=== PATIENT | female | born 1945 | race Caucasian/White ===

== ENCOUNTER 2019-05-09 11:55 | Day surgery (SDC) | payer MEDICARE ==
[2019-05-09] MEDS ORDERED: Marcaine 0.5% SDV 10 ML IM ONE (11:56)
[2019-05-09] MEDS ORDERED: Xylocaine 1% Vial 30 ML PF IJ ONE (11:56)
[2019-05-09] MEDS ORDERED: Depo-Medrol 40 MG/ML IM ONE (11:56)
--- NOTE | 2019-05-09 15:11 | XRAY ---
Indication: Bilateral SI joint injection. Intraoperative fluoroscopy was provided for 21 seconds. 4 digital spot images submitted for interpretation demonstrates posterior needle tip projecting over the inferior left and right SI joint. Correlate with intraoperative findings/report.
--- NOTE | 2019-05-09 15:11 | XRAY ---
21 seconds fluoroscopy time in surgery for bilateral SI joint injections.
== END 2019-05-09 14:14 | disposition home or self-care (01) ==
LOC: SDC-PAIN 11:55
PROVIDERS: ATTEND Psychiatry & Neurology Pain Medicine
DX: M46.1 Sacroiliitis, not elsewhere classified (principal); M53.3 Sacrococcygeal disorders, not elsewhere classified; E11.9 Type 2 diabetes mellitus without complications; I10 Essential (primary) hypertension; Z79.899 Other long term (current) drug therapy
CPT/HCPCS: 72202; 77002; G0260; 27096; J1030; J2001

== ENCOUNTER 2020-02-06 16:56 | Inpatient (IN) | payer MEDICARE ==
--- NOTE | 2020-02-06 17:00 | ERPHSYRPT ---
- History of Present Illness Time Seen by Provider: 02/06/20 17:00 Source: patient, EMS Exam Limitations: no limitations Physician History: This is a 74-year-old obese white female has a history of hypertension and diabetes as well as gout. Patient's primary care doctor is Dr. Sharp he has been seeing her in clinic for various pain issues. Patient has a history in the past of having a pain management doctor but told me specifically that the pain management doctor fired her from his clinic because she was not being compliant with the dosing schedule of her pain medicine. Approximately 2 to 4 weeks ago patient had some falling issues and some pain but did not have any x-rays to those areas specifically. Patient had complaints of lower back pain and bilateral hip pain. She then had another fall approximately 1 week ago and had pain in her left lower leg and left foot. There is bruising and swelling in the left foot as well. Patient states that until approximately 2 weeks ago patient was ambulatory. Patient is here today for intractable back and hip pain as well as inability to ambulate because of the pain. On 02/05/2020 a left tib-fib x- ray was performed and there was no evidence of any acute fracture or dislocation. On the same date, there was an x-ray of the left foot which does show a minimally displaced fracture at the base of the second proximal phalanx. Timing/Duration: week(s) (2 to 4 weeks ago) Severity: moderate Modifying Factors: Improves With: movement Associated Symptoms: denies symptoms Allergies/Adverse Reactions: levofloxacin [From Levaquin] Allergy (Mild, Verified 02/06/20 17:11) Itching patient also had red streak up arm Home Medications: Carvedilol 3.125 mg [Coreg 3.125 MG] 3.125 mg PO BID 10/26/12 [History] Acetaminophen 325 mg [Tylenol 325 mg] 650 mg PO BID 02/06/20 [History] Allopurinol 300 mg [Zyloprim 300 mg] 300 mg PO DAILY 02/06/20 [History] Amlodipine Besylate 5 mg [Norvasc 5 mg] 5 mg PO DAILY 02/06/20 [History] Atorvastatin Calcium 10 mg PO DAILY 02/06/20 [History] Diclofenac Sodium 50 mg [Voltaren 50 mg] 50 mg PO BID 02/06/20 [History] Gabapentin 100 mg PO TID 02/06/20 [History] Glipizide 10 mg PO DAILY 02/06/20 [History] Hx Tetanus, Diphtheria Vaccination/Date Given: Yes Hx Influenza Vaccination/Date Given: No Hx Pneumococcal Vaccination/Date Given: No Travel Risk - International Travel Have you traveled outside of the country in past 3 weeks: No - Coronavirus Screening Are you exhibiting any of the following symptoms?: No Close contact with a COVID-19 positive Pt in past 14-21 Days: No - Review of Systems Constitutional: No Symptoms Eyes: No Symptoms Ears, Nose, & Throat: No Symptoms Respiratory: No Symptoms Cardiac: No Symptoms Abdominal/Gastrointestinal: No Symptoms Genitourinary Symptoms: No Symptoms Musculoskeletal: Fall, Injury, Other (Into lower back and bilateral hips as well as left lower leg and left foot) Skin: Other (Bruising and swelling to left foot) Neurological: No Symptoms Psychological: No Symptoms Endocrine: No Symptoms Hematologic/Lymphatic: No Symptoms Immunological/Allergic: No Symptoms All Other Systems: Reviewed and Negative - Past Medical History Pertinent Past Medical History: Yes Neurological History: Peripheral Neuropathy, Stroke ENT History: No Pertinent History Cardiac History: Hypertension Respiratory History: No Pertinent History Endocrine Medical History: Diabetes Type II Musculoskeletal History: Arthritis GI Medical History: No Pertinent History History: No Pertinent History Psycho-Social History: No Pertinent History Female Reproductive Disorders: No Pertinent History - Past Surgical History Past Surgical History: Yes Neuro Surgical History: No Pertinent History Cardiac: No Pertinent History Respiratory: No Pertinent History Gastrointestinal: No Pertinent History Genitourinary: No Pertinent History Musculoskeletal: No Pertinent History Female Surgical History: No Pertinent History Other Surgical History: eye surgery to fixed cross eyes - Social History Smoking Status: Never smoker Exposure to second hand smoke: No Drug Use: none - Nursing Vital Signs Nursing Vital Signs: Initial Vital Signs Temperature 98.4 F 02/06/20 16:58 Pulse Rate 80 02/06/20 16:58 Respiratory Rate 16 02/06/20 16:58 Blood Pressure 152/70 02/06/20 16:58 O2 Sat by Pulse Oximetry 96 02/06/20 16:58 Pain Scale Pain Intensity [Lower Medial 8 Back] Pain Intensity 7 - Physical Exam General Appearance: mild distress, alert, anxiety, obese Eye Exam: PERRL/EOMI, eyes nml inspection Ears, Nose, Throat Exam: normal ENT inspection, moist mucous membranes Neck Exam: normal inspection, non-tender, supple, full range of motion Respiratory Exam: normal breath sounds, lungs clear, No chest tenderness, No respiratory distress Cardiovascular Exam: regular rate/rhythm, normal heart sounds, normal peripheral pulses Gastrointestinal/Abdomen Exam: soft, normal bowel sounds, No tenderness Pelvic Exam: not done Rectal Exam: not done Back Exam: normal inspection, normal range of motion, vertebral tenderness (Are level.) Extremity Exam: pelvis stable, swelling, tenderness (And ecchymosis of left foot) Neurologic Exam: alert, oriented x 3, cooperative, aviation operations specialist II-XII nml as tested, normal mood/affect Skin Exam: ecchymosis Lymphatic Exam: No adenopathy (Foot) SpO2 Interpretation: normal O2 Delivery: Room Air - Course Nursing assessment & vital signs reviewed: Yes Ordered Tests: Active Orders 24 hr Category Date Time Status HIP RIZWAN (4V) INCL PELV IF DONE Stat Exams 02/06/20 17:28 Taken LUMBAR LIMITED (2 OR 3 VIEWS) Stat Exams 02/06/20 17:28 Taken BMP Stat Lab 02/06/20 17:53 Completed CBC W DIFF Stat Lab 02/06/20 17:53 Completed UA W/RFX UR CULTURE Stat Lab 02/06/20 17:28 Ordered Transfer Order Routine Transfer 02/06/20 Ordered Medication Summary Generic Name Dose Route Start Last Admin Trade Name Freq PRN Reason Stop Dose Admin Sodium Chloride 1,000 mls @ 100 mls/hr 02/06/20 17:30 02/06/20 17:41 Sodium Chloride 0.45% 1000 Ml IV 03/07/20 17:29 Not Given .Q10H KELLEN Sodium Chloride 1,000 mls @ 100 mls/hr 02/06/20 17:45 02/06/20 17:44 Sodium Chloride 0.9% 1000 Ml IV 03/07/20 17:44 100 mls/hr .Q10H KELLEN Administration Discontinued Medications Generic Name Dose Route Start Last Admin Trade Name Freq PRN Reason Stop Dose Admin Sodium Chloride Confirm 02/06/20 17:33 Sodium Chloride 0.9% 1000 Ml Administered 02/06/20 17:34 Dose 1,000 mls @ ud .ROUTE .STK-MED ONE Lorazepam 0.5 mg 02/06/20 19:25 Ativan 2 Mg/1 Ml Vial IV 02/06/20 19:26 STAT ONE Morphine Sulfate 2 mg 02/06/20 17:29 02/06/20 17:34 Morphine Sulfate 2 Mg Inj IV 02/06/20 17:30 2 mg STAT ONE Administration Morphine Sulfate Confirm 02/06/20 17:33 Morphine Sulfate 2 Mg Inj Administered 02/06/20 17:34 Dose 2 mg .ROUTE .STK-MED ONE Morphine Sulfate 2 mg 02/06/20 19:25 Morphine Sulfate 2 Mg Inj IV 02/06/20 19:26 STAT ONE Ondansetron HCl 4 mg 02/06/20 17:29 02/06/20 17:34 Zofran 4 Mg/2 Ml Vial IV 02/06/20 17:30 4 mg STAT ONE Administration Ondansetron HCl Confirm 02/06/20 17:33 Zofran 4 Mg/2 Ml Vial Administered 02/06/20 17:34 Dose 4 mg .ROUTE .STK-MED ONE Lab/Rad Data: Laboratory Result Diagrams 02/06/20 17:53 02/06/20 17:53 Laboratory Results 02/06/20 02/06/20 Range/Units 17:53 17:53 WBC 10.6 H (4.0-10.5) K/mm3 RBC 3.69 L (4.1-5.4) M/mm3 Hgb 11.6 L (12.0-16.0) gm/dl Hct 35.2 (35-47) % MCV 95.4 (78-100) fl MCH 31.4 (26-32) pg MCHC 33.0 (32-36) g/dl RDW 14.1 H (11.5-14.0) % Plt Count 232 (150-450) K/mm3 MPV 12.2 H (7.5-11.0) fl Gran % 65.0 (36.0-66.0) % Eos # (Auto) 0.30 (0-0.5) Absolute Lymphs (auto) 1.99 (1.0-4.6) Absolute Monos (auto) 1.40 H (0.0-1.3) Lymphocytes % 18.7 L (24.0-44.0) % Monocytes % 13.2 H (0.0-12.0) % Eosinophils % 2.8 (0.00-5.0) % Basophils % 0.3 (0.0-0.4) % Absolute Granulocytes 6.92 H (1.4-6.9) Basophils # 0.03 (0-0.4) Sodium 130 L (137-145) mmol/L Potassium 4.0 (3.5-5.1) mmol/L Chloride 93 L (98-107) mmol/L Carbon Dioxide 27 (22-30) mmol/L Anion Gap 14.6 (5-15) MEQ/L BUN 39 H (7-17) mg/dL Creatinine 1.30 H (0.52-1.04) mg/dL Estimated GFR 42.3 ML/MIN Glucose 124 H (74-106) mg/dL Calcium 9.6 (8.4-10.2) mg/dL - Progress Progress: improved, pain not gone completely, re-examined Progress Note: 02/06/20 19:27 X-ray of the lumbar spine shows significant chronic changes. I do not appreciate any acute fracture or subluxation. X-ray of the pelvis and bilateral hips show no acute fracture or dislocation. 02/06/20 19:27 Medical decision making: This patient not only has intractable pain but is having frequent falls. She is unable to ambulate. Dr. Sharp has requested evaluation of this patient in the emergency department. Patient will be placed in observation and given treatment for intractable pain, bedrest, and case management/social service evaluation. Counseled pt/family regarding: lab results, diagnosis, rad results - Departure Departure Disposition: Observation Clinical Impression: Frequent falls, Intractable pain, Unable to ambulate Condition: Stable Critical Care Time: No Referrals: RUSS SHARP MD [Primary Care Provider] -
[2020-02-06] MEDS ORDERED: Zofran 4 MG/2 ML VIAL IV ONE (17:29)
[2020-02-06] MEDS ORDERED: MORPHINE SULFATE 2 MG INJ IV ONE ×2 (17:29→19:25)
[2020-02-06] MEDS ORDERED: MORPHINE SULFATE 2 MG INJ ONE ×2 (17:33→19:49)
[2020-02-06] MEDS ORDERED: Sodium Chloride 0.9% 1000 ML 1,000 ML ONE (17:33)
[2020-02-06] MEDS ORDERED: Zofran 4 MG/2 ML VIAL ONE (17:33)
[2020-02-06] MEDS ORDERED: Sodium Chloride 0.9% 1000 ML 1,000 ML IV SCH (17:45)
[2020-02-06 17:49] LABS: Absolute Neutrophil Ct (ANC) 6.92 (1.4-6.9); BASOPHIL % 0.3 % (0.0-0.4); Basophil (Absolute #) 0.03 (0-0.4); Eosinophil % 2.8 % (0.00-5.0); Hematocrit 35.2 % (35-47); Hemoglobin 11.6 gm/dl (12.0-16.0); Lymphocyte (Absolute #) 1.99 (1.0-4.6); Lymphocytes % 18.7 % (24.0-44.0); Mean Cell Volume 95.4 fl (78-100); Mean Corpuscular Hemoglobin 31.4 pg (26-32); Mean Platelet Volume 12.2 fl (7.5-11.0); Monocytes % 13.2 % (0.0-12.0); Platelet Count 232 K/mm3 (150-450); Red Blood Count 3.69 M/mm3 (4.1-5.4); Red Cell Distribution Width 14.1 % (11.5-14.0); White Blood Count 10.6 K/mm3 (4.0-10.5)
[2020-02-06 17:59] LABS: ANION GAP 14.6 MEQ/L (5-15); Calcium 9.6 mg/dL (8.4-10.2); Creatinine 1 1.3 mg/dL (0.52-1.04); EST GLOMERULAR FILTRATION RATE 42.3 ML/MIN
[2020-02-06] MEDS ORDERED: Ativan 2 MG/1 ML VIAL IV ONE (19:25)
[2020-02-06] MEDS ORDERED: Ativan 2 MG/1 ML VIAL ONE (19:49)
[2020-02-06] MEDS ORDERED: Zofran 4 MG/2 ML VIAL IV PRN (20:26)
[2020-02-06] MEDS ORDERED: MORPHINE SULFATE 4 MG INJ IV PRN (20:26)
[2020-02-06] MEDS ORDERED: TYLENOL 325 MG PO PRN (20:26)
[2020-02-06 21:40] LABS: Appearance CLOUDY (CLEAR); Bilirubin NEGATIVE (NEGATIVE); Glucose NEGATIVE (NEGATIVE); Ketones NEGATIVE (NEGATIVE); Nitrite POSITIVE (NEGATIVE); Protein,Urine Dip NEGATIVE (Negative); RBC SMALL Ery/ul (0-5); Urobilinogen 2 mg/dL (0-1)
[2020-02-06 21:44] LABS: Bacteria MODERATE /HPF (NEGATIVE); Epithelial Cells RARE /HPF (FEW); Mucus SLIGHT /HPF (NEGATIVE); RBC 0-2 /HPF (0-2); WBC >100 /HPF (0-5)
[2020-02-06] MEDS ORDERED: Morphine PCA 1 MG/ML 30 ML IV ONE (21:56)
[2020-02-06] MEDS ORDERED: PHARMACY DOSING REQUIRED: MORPHINE PCA IV STA ×2 (22:01→23:00)
[2020-02-06] MEDS: Morphine PCA 1 MG/ML 30 ML IV PRN (22:12)
[2020-02-06 22:18] LABS: Appearance CLOUDY (CLEAR); Bilirubin NEGATIVE (NEGATIVE); Dipstick done @ ? MAIN LAB; Glucose NEGATIVE (NEGATIVE); Ketones NEGATIVE (NEGATIVE); Nitrite POSITIVE (NEGATIVE); Protein,Urine Dip NEGATIVE (Negative); RBC SMALL Ery/ul (0-5); Urobilinogen 0.2 mg/dL (0-1)
[2020-02-06 22:33] LABS: Bacteria MODERATE /HPF (NEGATIVE); RBC 0-2 /HPF (0-2); WBC >100 /HPF (0-5)
[2020-02-07] MEDS: Sodium Chloride 0.9% 1000 ML 1,000 ML IV SCH ×2 (03:31→07:23)
[2020-02-07 07:07] LABS: Hemoglobin 11.5 gm/dl (12.0-16.0); Mean Cell Volume 95.9 fl (78-100); Mean Corpuscular Hemoglobin 31.5 pg (26-32); Mean Corpuscular Hgb Concent. 32.9 g/dl (32-36); Platelet Count 234 K/mm3 (150-450); Red Blood Count 3.65 M/mm3 (4.1-5.4); Red Cell Distribution Width 14.2 % (11.5-14.0); White Blood Count 9.6 K/mm3 (4.0-10.5)
--- NOTE | 2020-02-07 07:58 | PCM.HP ---
History of Present Illness - Chief Complaint Chief Complaint: frequent falls, intractable pain History of Present Illness: is a 74 year old obese white female has a history of hypertension and diabetes as well as gout. Patient's primary care doctor is Dr. Sharp he has been seeing her in clinic for various pain issues. Patient has a history in the past of having a pain management doctor but told me specifically that the pain management doctor fired her from his clinic because she was not being compliant with the dosing schedule of her pain medicine. Approximately 2 to 4 weeks ago patient had some falling issues and some pain but did not have any x- rays to those areas specifically. Patient had complaints of lower back pain and bilateral hip pain. She then had another fall approximately 1 week ago and had pain in her left lower leg and left foot. There is bruising and swelling in the left foot as well. Patient states that until approximately 2 weeks ago patient was ambulatory. Patient is here today for intractable back and hip pain as well as inability to ambulate because of the pain. On 02/05/2020 a left tib-fib x- ray was performed and there was no evidence of any acute fracture or dislocation. On the same date, there was an x-ray of the left foot which does show a minimally displaced fracture at the base of the second proximal phalanx. - Review of Systems Constitutional: Lethargy, Weakness, No Fever, No Chills Eyes: No Symptoms Ears, Nose, & Throat: No Symptoms Respiratory: Short Of Breath, No Cough Cardiac: No Chest Pain, No Edema, No Syncope Abdominal/Gastrointestinal: No Abdominal Pain, No Nausea, No Vomiting, No Diarrhea Genitourinary Symptoms: No Dysuria Musculoskeletal: Back Pain, Neck Pain, Deformity (left foot), Fall, Injury, Joint Redness, Joint Pain, Joint Swelling Skin: No Rash Neurological: Dizziness, No Focal Weakness, No Sensory Changes Psychological: No Symptoms Endocrine: No Symptoms Hematologic/Lymphatic: No Symptoms Immunological/Allergic: No Symptoms Medications & Allergies Home Medications: Home Medication List Aspirin [Anamaria Aspirin] 325 mg PO DAILY #0 tablet 09/27/11 [Rx Confirmed 02/06/20] Acetaminophen 325 mg [Tylenol 325 mg] 650 mg PO BID 02/06/20 [History Confirmed 02/06/20] Allopurinol 300 mg [Zyloprim 300 mg] 300 mg PO DAILY 02/06/20 [History Confirmed 02/06/20] Amlodipine Besylate 5 mg [Norvasc 5 mg] 5 mg PO DAILY 02/06/20 [History Confirmed 02/06/20] Atorvastatin Calcium 10 mg PO DAILY 02/06/20 [History Confirmed 02/06/20] Carvedilol 6.25 mg [Coreg 6.25 MG] 6.25 mg PO BID 02/06/20 [History Confirmed 02/06/20] Gabapentin 300 mg PO TID 02/06/20 [History Confirmed 02/06/20] Glipizide 10 mg PO DAILY 02/06/20 [History Confirmed 02/06/20] Allergies/Adverse Reactions: Allergies Allergy/AdvReac Type Severity Reaction Status Date / Time diclofenac [From Voltaren] Allergy Severe Rash Verified 02/07/20 03:47 trolamine salicylate Allergy Severe Rash Verified 02/07/20 03:47 [From Aspercreme] levofloxacin [From Levaquin] Allergy Mild Itching Verified 02/06/20 17:11 FLU VACCINE AdvReac Severe Nausea and Uncoded 02/07/20 03:45 Vomiting - Past Medical History Past Medical History: Yes Neurological History: Peripheral Neuropathy, Stroke ENT History: No Pertinent History Cardiac History: High Cholesterol, Hypertension Respiratory History: No Pertinent History Endocrine Medical History: Diabetes Type II Musculoskelatal History: Arthritis GI Medical History: No Pertinent History History: No Pertinent History Pyscho-Social History: No Pertinent History Reproductive Disorders: No Pertinent History - Female History Are you now?: No - Past Surgical History Past Surgical History: Yes Neuro Surgical History: No Pertinent History Cardiac History: No Pertinent History Respiratory Surgery: No Pertinent History GI Surgical History: No Pertinent History Genitourinary Surgical Hx: No Pertinent History Musculskeletal Surgical Hx: No Pertinent History Female Surgical History: No Pertinent History Other Surgical History: eye surgery to fixed cross eyes - Social History Smoking Status: Never smoker Exposure to second hand smoke: No Alcohol: Rarely Drug Use: none - Physical Exam Vital Signs: Vital Signs - 24 hr Temp Pulse Resp BP Pulse Ox 02/07/20 07:39 98.0 F 87 16 147/66 96 02/07/20 04:00 98.6 F 86 20 147/66 98 02/07/20 02:12 98 02/07/20 00:00 98.2 F 93 H 20 128/60 98 02/06/20 22:12 98 02/06/20 21:00 97.8 F 83 28 H 142/65 98 02/06/20 20:00 81 22 144/56 98 02/06/20 19:00 86 22 90/70 95 02/06/20 18:15 86 20 112/86 97 02/06/20 16:58 98.4 F 80 16 152/70 96 General Appearance: no apparent distress, alert Neurologic Exam: alert, oriented x 3, cooperative, No motor deficits Eye Exam: PERRL/EOMI, eyes nml inspection Ears, Nose, Throat Exam: normal ENT inspection, TMs normal, pharynx normal, moist mucous membranes Neck Exam: normal inspection, non-tender, supple, full range of motion Respiratory Exam: normal breath sounds, lungs clear, No respiratory distress Cardiovascular Exam: regular rate/rhythm, normal heart sounds, normal peripheral pulses Gastrointestinal/Abdomen Exam: soft, normal bowel sounds, No tenderness, No mass Back Exam: normal inspection, normal range of motion, No CVA tenderness, No vertebral tenderness Extremity Exam: normal inspection, pelvis stable, contusions, joint swelling, swelling, tenderness Skin Exam: normal color, warm, dry, No rash Lymphatic Exam: No adenopathy Results - Labs Lab/Micro Results: Lab Results-Last 24 Hours 02/06/20 02/06/20 02/06/20 Range/Units 17:53 17:53 21:40 WBC 10.6 H (4.0-10.5) K/mm3 RBC 3.69 L (4.1-5.4) M/mm3 Hgb 11.6 L (12.0-16.0) gm/dl Hct 35.2 (35-47) % MCV 95.4 (78-100) fl MCH 31.4 (26-32) pg MCHC 33.0 (32-36) g/dl RDW 14.1 H (11.5-14.0) % Plt Count 232 (150-450) K/mm3 MPV 12.2 H (7.5-11.0) fl Gran % 65.0 (36.0-66.0) % Eos # (Auto) 0.30 (0-0.5) Absolute Lymphs (auto) 1.99 (1.0-4.6) Absolute Monos (auto) 1.40 H (0.0-1.3) Lymphocytes % 18.7 L (24.0-44.0) % Monocytes % 13.2 H (0.0-12.0) % Eosinophils % 2.8 (0.00-5.0) % Basophils % 0.3 (0.0-0.4) % Absolute Granulocytes 6.92 H (1.4-6.9) Basophils # 0.03 (0-0.4) Sodium 130 L (137-145) mmol/L Potassium 4.0 (3.5-5.1) mmol/L Chloride 93 L (98-107) mmol/L Carbon Dioxide 27 (22-30) mmol/L Anion Gap 14.6 (5-15) MEQ/L BUN 39 H (7-17) mg/dL Creatinine 1.30 H (0.52-1.04) mg/dL Estimated GFR 42.3 ML/MIN Glucose 124 H (74-106) mg/dL POC Glucometer (74 to 106) mg/dL Calcium 9.6 (8.4-10.2) mg/dL Urinalys Dipstick Clnc Urine Color YELLOW (YELLOW) Urine Appearance CLOUDY (CLEAR) Urine pH 6.0 (5-6) Ur Specific [place] 1.010 (1.005-1.025) POC Urine Protein Conf NEGATIVE (Negative) Urine Ketones NEGATIVE (NEGATIVE) Urine Nitrite POSITIVE (NEGATIVE) Urine Bilirubin NEGATIVE (NEGATIVE) Urine Urobilinogen 2 (0-1) mg/dL Urine Leukocytes MODERATE (NEGATIVE) Urine WBC (Auto) >100 (0-5) /HPF Urine RBC (Auto) 0-2 (0-2) /HPF U Epithel Cells (Auto) RARE (FEW) /HPF Urine Bacteria (Auto) MODERATE (NEGATIVE) /HPF Urine RBC SMALL (0-5) Jamar/ul Urine Mucus (Auto) SLIGHT (NEGATIVE) /HPF Ur Culture Indicated? YES Urine Glucose NEGATIVE (NEGATIVE) mg/dL 02/06/20 02/07/20 02/07/20 Range/Units 22:00 06:20 07:24 WBC 9.6 (4.0-10.5) K/mm3 RBC 3.65 L (4.1-5.4) M/mm3 Hgb 11.5 L (12.0-16.0) gm/dl Hct 35.0 (35-47) % MCV 95.9 (78-100) fl MCH 31.5 (26-32) pg MCHC 32.9 (32-36) g/dl RDW 14.2 H (11.5-14.0) % Plt Count 234 (150-450) K/mm3 MPV 12.0 H (7.5-11.0) fl Gran % (36.0-66.0) % Eos # (Auto) (0-0.5) Absolute Lymphs (auto) (1.0-4.6) Absolute Monos (auto) (0.0-1.3) Lymphocytes % (24.0-44.0) % Monocytes % (0.0-12.0) % Eosinophils % (0.00-5.0) % Basophils % (0.0-0.4) % Absolute Granulocytes (1.4-6.9) Basophils # (0-0.4) Sodium (137-145) mmol/L Potassium (3.5-5.1) mmol/L Chloride (98-107) mmol/L Carbon Dioxide (22-30) mmol/L Anion Gap (5-15) MEQ/L BUN (7-17) mg/dL Creatinine (0.52-1.04) mg/dL Estimated GFR ML/MIN Glucose (74-106) mg/dL POC Glucometer 118 H (74 to 106) mg/dL Calcium (8.4-10.2) mg/dL Urinalys Dipstick Clnc MAIN LAB Urine Color YELLOW (YELLOW) Urine Appearance CLOUDY (CLEAR) Urine pH 6.0 (5-6) Ur Specific [place] 1.010 (1.005-1.025) POC Urine Protein Conf NEGATIVE (Negative) Urine Ketones NEGATIVE (NEGATIVE) Urine Nitrite POSITIVE (NEGATIVE) Urine Bilirubin NEGATIVE (NEGATIVE) Urine Urobilinogen 0.2 (0-1) mg/dL Urine Leukocytes LARGE (NEGATIVE) Urine WBC (Auto) >100 (0-5) /HPF Urine RBC (Auto) 0-2 (0-2) /HPF U Epithel Cells (Auto) NONE (FEW) /HPF Urine Bacteria (Auto) MODERATE (NEGATIVE) /HPF Urine RBC SMALL (0-5) Jamar/ul Urine Mucus (Auto) (NEGATIVE) /HPF Ur Culture Indicated? YES Urine Glucose NEGATIVE (NEGATIVE) mg/dL Microbiology 02/06/20 21:40 Urine Culture - Preliminary Urine, Void GRAM NEGATIVE ID AND SENSITIVITY PENDING Accuchecks Date 02/07/20 Time 07:30 - Radiology Impressions Radiology Exams & Impressions: Radiology Procedures Category Date Time Status HIP RIZWAN (4V) INCL PELV IF DONE Stat Exams 02/06/20 17:28 Taken LUMBAR LIMITED (2 OR 3 VIEWS) Stat Exams 02/06/20 17:28 Taken Assessment/Plan (1) Transient ischemic attack Current Visit: No Status: Active Assessment & Plan: Chief Complaint Diagnosis frequent falls, intractable pain Allergies Allergy/AdvReac Type Severity Reaction Status Date / Time diclofenac [From Voltaren] Allergy Severe Rash Verified 02/07/20 03:47 trolamine salicylate Allergy Severe Rash Verified 02/07/20 03:47 [From Aspercreme] levofloxacin [From Levaquin] Allergy Mild Itching Verified 02/06/20 17:11 FLU VACCINE AdvReac Severe Nausea and Uncoded 02/07/20 03:45 Vomiting Vital Signs (Last 24 hours) Temp Pulse Resp BP Pulse Ox 02/07/20 07:39 98.0 F 87 16 147/66 96 02/07/20 04:00 98.6 F 86 20 147/66 98 02/07/20 02:12 98 02/07/20 00:00 98.2 F 93 H 20 128/60 98 02/06/20 22:12 98 02/06/20 21:00 97.8 F 83 28 H 142/65 98 02/06/20 20:00 81 22 144/56 98 02/06/20 19:00 86 22 90/70 95 02/06/20 18:15 86 20 112/86 97 02/06/20 16:58 98.4 F 80 16 152/70 96 Home Medications Medication Instructions Recorded Confirmed Last Taken Type Acetaminophen 325 mg [Tylenol 650 mg PO BID 02/06/20 02/06/20 Unknown History 325 mg] Allopurinol 300 mg [Zyloprim 300 mg PO DAILY 02/06/20 02/06/20 Unknown History 300 mg] Amlodipine Besylate 5 mg 5 mg PO DAILY 02/06/20 02/06/20 02/06/20 History [Norvasc 5 mg] Atorvastatin Calcium 10 mg PO DAILY 02/06/20 02/06/20 02/06/20 History Carvedilol 6.25 mg [Coreg 6.25 6.25 mg PO BID 02/06/20 02/06/20 02/05/20 History MG] Gabapentin 300 mg PO TID 02/06/20 02/06/20 Unknown History Glipizide 10 mg PO DAILY 02/06/20 02/06/20 Unknown History Current Medications Generic Name Dose Route Start Last Admin Trade Name Erik PRN Reason Stop Dose Admin Acetaminophen 650 mg 02/06/20 20:26 Tylenol 325 Mg PO 03/07/20 20:25 Q4H PRN PRN PAIN, FEVER, HEADACHE Sodium Chloride 1,000 mls @ 50 mls/hr 02/06/20 20:26 02/07/20 07:23 Sodium Chloride 0.9% 1000 Ml IV 03/07/20 20:25 50 mls/hr .Q20H KELLEN Administration Morphine Sulfate 30 mg 02/06/20 22:05 02/06/20 22:12 Morphine Category Consultant 1 Mg/Ml 30 Ml IV 02/11/20 22:04 30 mg PRN PRN Administration PAIN Ondansetron HCl 4 mg 02/06/20 20:26 Zofran 4 Mg/2 Ml Vial IV 03/07/20 20:25 Q6H PRN PRN NAUSEA/VOMITING Discontinued Medications Generic Name Dose Route Start Last Admin Trade Name Erik PRN Reason Stop Dose Admin Sodium Chloride 1,000 mls @ 100 mls/hr 02/06/20 17:30 02/06/20 17:41 Sodium Chloride 0.45% 1000 Ml IV 03/07/20 17:29 Not Given .Q10H KELLEN Sodium Chloride Confirm 02/06/20 17:33 Sodium Chloride 0.9% 1000 Ml Administered 02/06/20 17:34 Dose 1,000 mls @ ud .ROUTE .STK-MED ONE Sodium Chloride 1,000 mls @ 100 mls/hr 02/06/20 17:45 02/06/20 17:44 Sodium Chloride 0.9% 1000 Ml IV 03/07/20 17:44 100 mls/hr .Q10H KELLEN Administration Lorazepam 0.5 mg 02/06/20 19:25 02/06/20 19:58 Ativan 2 Mg/1 Ml Vial IV 02/06/20 19:26 0.5 mg STAT ONE Administration Lorazepam Confirm 02/06/20 19:49 Ativan 2 Mg/1 Ml Vial Administered 02/06/20 19:50 Dose 2 mg .ROUTE .STK-MED ONE Morphine Sulfate 2 mg 02/06/20 17:29 02/06/20 17:34 Morphine Sulfate 2 Mg Inj IV 02/06/20 17:30 2 mg STAT ONE Administration Morphine Sulfate Confirm 02/06/20 17:33 Morphine Sulfate 2 Mg Inj Administered 02/06/20 17:34 Dose 2 mg .ROUTE .STK-MED ONE Morphine Sulfate 2 mg 02/06/20 19:25 02/06/20 19:59 Morphine Sulfate 2 Mg Inj IV 02/06/20 19:26 2 mg STAT ONE Administration Morphine Sulfate Confirm 02/06/20 19:49 Morphine Sulfate 2 Mg Inj Administered 02/06/20 19:50 Dose 2 mg .ROUTE .STK-MED ONE Morphine Sulfate 2 mg 02/06/20 20:26 Morphine Sulfate 4 Mg Inj IV 02/11/20 20:25 Q4H PRN PRN PAIN Morphine Sulfate Confirm 02/06/20 21:56 Morphine Category Consultant 1 Mg/Ml 30 Ml Administered 02/06/20 21:57 Dose 30 mg IV .STK-MED ONE Non-Formulary Medication 1 each 02/06/20 22:01 02/06/20 22:00 Pharmacy Dosing Required: Morphine Category Consultant IV 02/06/20 22:02 1 each STAT STA Administration Non-Formulary Medication 1 each 02/06/20 23:00 02/06/20 23:00 Pharmacy Dosing Required: Morphine Category Consultant IV 02/06/20 23:01 1 each STAT STA Administration Ondansetron HCl 4 mg 02/06/20 17:29 02/06/20 17:34 Zofran 4 Mg/2 Ml Vial IV 02/06/20 17:30 4 mg STAT ONE Administration Ondansetron HCl Confirm 02/06/20 17:33 Zofran 4 Mg/2 Ml Vial Administered 02/06/20 17:34 Dose 4 mg .ROUTE .STK-MED ONE Intake & Output (Last 24 hours) 02/04/20 02/05/20 02/06/20 02/07/20 11:59 11:59 11:59 11:59 Intake Total 728 Output Total 3000 Balance -2272 Weight 97.4 kg Microbiology Results (Last 24 hours) 02/06/20 21:40 Urine, Void Urine Culture - Preliminary GRAM NEGATIVE ID AND SENSITIVITY PENDING 02/06/20 22:00 Urine, Indwelling Catheter Urine Culture - Pending Laboratory Results (Last 24 hours) 02/07/20 02/07/20 02/06/20 07:24 06:20 22:00 WBC 9.6 RBC 3.65 L Hgb 11.5 L Hct 35.0 MCV 95.9 MCH 31.5 MCHC 32.9 RDW 14.2 H Plt Count 234 MPV 12.0 H Gran % Eos # (Auto) Absolute Lymphs (auto) Absolute Monos (auto) Lymphocytes % Monocytes % Eosinophils % Basophils % Absolute Granulocytes Basophils # Sodium Potassium Chloride Carbon Dioxide Anion Gap BUN Creatinine Estimated GFR Glucose POC Glucometer 118 H Calcium Urinalys Dipstick Clnc MAIN LAB Urine Color YELLOW Urine Appearance CLOUDY Urine pH 6.0 Ur Specific [place] 1.010 POC Urine Protein Conf NEGATIVE Urine Ketones NEGATIVE Urine Nitrite POSITIVE Urine Bilirubin NEGATIVE Urine Urobilinogen 0.2 Urine Leukocytes LARGE Urine WBC (Auto) >100 Urine RBC (Auto) 0-2 U Epithel Cells (Auto) NONE Urine Bacteria (Auto) MODERATE Urine RBC SMALL Urine Mucus (Auto) Ur Culture Indicated? YES Urine Glucose NEGATIVE 02/06/20 02/06/20 02/06/20 21:40 17:53 17:53 WBC 10.6 H RBC 3.69 L Hgb 11.6 L Hct 35.2 MCV 95.4 MCH 31.4 MCHC 33.0 RDW 14.1 H Plt Count 232 MPV 12.2 H Gran % 65.0 Eos # (Auto) 0.30 Absolute Lymphs (auto) 1.99 Absolute Monos (auto) 1.40 H Lymphocytes % 18.7 L Monocytes % 13.2 H Eosinophils % 2.8 Basophils % 0.3 Absolute Granulocytes 6.92 H Basophils # 0.03 Sodium 130 L Potassium 4.0 Chloride 93 L Carbon Dioxide 27 Anion Gap 14.6 BUN 39 H Creatinine 1.30 H Estimated GFR 42.3 Glucose 124 H POC Glucometer Calcium 9.6 Urinalys Dipstick Clnc Urine Color YELLOW Urine Appearance CLOUDY Urine pH 6.0 Ur Specific [place] 1.010 POC Urine Protein Conf NEGATIVE Urine Ketones NEGATIVE Urine Nitrite POSITIVE Urine Bilirubin NEGATIVE Urine Urobilinogen 2 Urine Leukocytes MODERATE Urine WBC (Auto) >100 Urine RBC (Auto) 0-2 U Epithel Cells (Auto) RARE Urine Bacteria (Auto) MODERATE Urine RBC SMALL Urine Mucus (Auto) SLIGHT Ur Culture Indicated? YES Urine Glucose NEGATIVE Orders (Last 24 hours) Category Date Time Status Bedrest TOLERATED Activity 02/06/20 20:26 Active Cath [Catheter-Pine [place]el] STAT Care 02/06/20 21:15 Active Catheter Care Record Q6H Care 02/07/20 02:17 Active POCT Glucose Check ACHS Care 02/07/20 07:[address] in Observation ROUTINE Care 02/06/20 20:26 Active Weight,Daily 0600 Care 02/06/20 20:26 Active Technology Lead/Discharge Plan ROUTINE Cons 02/06/20 20:26 Active Consistent Carbohydrate Diet 2000 Calorie Diet 02/06/20 Dinner Active Nutritional Admission Screen ONCE Diet 02/06/20 23:31 Active HIP RIZWAN (4V) INCL PELV IF DONE Stat Exams 02/06/20 17:28 Taken LUMBAR LIMITED (2 OR 3 VIEWS) Stat Exams 02/06/20 17:28 Taken BMP Stat Lab 02/06/20 17:53 Completed CBC Routine Lab 02/06/20 23:31 Completed CBC W DIFF Stat Lab 02/06/20 17:53 Completed CULTURE,URINE Stat Lab 02/06/20 21:40 Results CULTURE,URINE Stat Lab 02/06/20 22:00 Received POCT GLUCOSE Stat Lab 02/07/20 07:24 Completed PREALBUMIN Routine Lab 02/06/20 23:31 Received Acetaminophen 325 mg [Tylenol 325 mg] Med 02/06/20 20:26 Active 650 mg PO Q4H PRN PRN Lorazepam 2 mg/1 ml [Ativan 2 MG/1 ML VIAL] Med 02/06/20 19:25 Discontinued 0.5 mg IV STAT ONE Lorazepam 2 mg/1 ml [Ativan 2 MG/1 ML VIAL] Med 02/06/20 19:49 Discont inued 2 mg .ROUTE .STK-MED ONE Morphine Sulfate 2 mg Inj Med 02/06/20 17:33 Discontinued 2 mg .ROUTE .STK-MED ONE Morphine Sulfate 2 mg Inj Med 02/06/20 19:49 Discontinued 2 mg .ROUTE .STK-MED ONE Morphine Sulfate 2 mg Inj Med 02/06/20 17:29 Discontinued 2 mg IV STAT ONE Morphine Sulfate 2 mg Inj Med 02/06/20 19:25 Discontinued 2 mg IV STAT ONE Morphine Sulfate 30 mg/30 ml [Morphine DESK TOP PUBLISHER 1 MG/ML 30 Med 02/06/20 21:56 Discontinued ML] 30 mg IV .STK-MED ONE Morphine Sulfate 30 mg/30 ml [Morphine DESK TOP PUBLISHER 1 MG/ML 30 Med 02/06/20 22:05 Active ML] 30 mg IV PRN PRN Morphine Sulfate 4 mg Inj Med 02/06/20 20:26 Discontinued 2 mg IV Q4H PRN PRN NaCl 0.45% 1000 ml [Sodium Chloride 0.45% 1000 ML] 1, Med 02/06/20 17:30 Discontinued 000 ml IV 100 mls/hr NaCl 0.9% 1000 ml [Sodium Chloride 0.9% 1000 ML] 1,000 Med 02/06/20 17:33 Discontinued ml .ROUTE UD NaCl 0.9% 1000 ml [Sodium Chloride 0.9% 1000 ML] 1,000 Med 02/06/20 17:45 Discontinued ml IV 100 mls/hr NaCl 0.9% 1000 ml [Sodium Chloride 0.9% 1000 ML] 1,000 Med 02/06/20 20:26 Active ml IV 50 mls/hr Ondansetron HCl 4 mg/2 ml [Zofran 4 MG/2 ML VIAL] Med 02/06/20 17:33 Discontinued 4 mg .ROUTE .STK-MED ONE Ondansetron HCl 4 mg/2 ml [Zofran 4 MG/2 ML VIAL] Med 02/06/20 20:26 Active 4 mg IV Q6H PRN PRN Ondansetron HCl 4 mg/2 ml [Zofran 4 MG/2 ML VIAL] Med 02/06/20 17:29 Discontinued 4 mg IV STAT ONE Pharmacy Dose: Morphine DESK TOP PUBLISHER [Pharmacy Dosing Required: Med 02/06/20 22:01 Discontinued Morphine DESK TOP PUBLISHER] 1 each IV STAT STA Pharmacy Dose: Morphine DESK TOP PUBLISHER [Pharmacy Dosing Required: Med 02/06/20 23:00 Discontinued Morphine DESK TOP PUBLISHER] 1 each IV STAT STA PT Eval & Treat ( Order) ONCE PT 02/06/20 20:26 Active PT Screen per Nursing Assess ONCE PT 02/06/20 23:31 Active Patient Care Notes (Last 24 hours) 02/07/20 05:36 Nursing Note by Letty Castillo NOT ABLE TO CHART DESK TOP PUBLISHER 4HR SHIFT ASSESSMENT OR END OF SHIFT TOTALS ON APR DUE TO DOCUMENTATION PROBLEM. MORPHINE DESK TOP PUBLISHER TOTAL GIVEN OVER SHIFT WAS 10MG, COMPLETED 8DENIED 4, 0 PARTIALS. PT SLEEPING BUT EASILY AROUSES, CAN STAY AWAKE FOR CONVERSATION, RESP 20, SPO2 98% ON ROOM AIR. Initialized on 02/07/20 05:36 - END OF NOTE 02/06/20 21:15 (created 02/07/20 04:05) SBAR Note by Letty Castillo SITUATION I am calling about [employer] the patient's code status is SCO The problem I am calling about is: UNCONTROLLED PAIN THAT ORDERD PAIN MEDICATION IS ONLY LASTING HER AN HR AND IS ORDERED Q4H, UA COLLECTED CLOUDY AND PURULENT FOR POSSIBLE ANTIBIOTIC ORDER UA PENDING, AND PERMISSION TO PLACE F/C DUE TO URINATION FREQUENCY AND PT'S IMPAIRED ABILITY TO STAND FOR BSC AND BEDPAN PLACEMENT CAUSES PT SEVERE DISTRESS/PAIN ASSESSMENT RECOMMENDATION Physician notified at [phone] New Orders received: RECEIVED ORDER FOR MORPHINE DESK TOP PUBLISHER PHARMACY TO DOSE. NO ANTIBIOTIC GIVEN, DR SHARP STATED HE WOULD ADDRESS THAT TOMORROW. PERMISSION GIVEN TO PLACE F/C Vital Signs (Last 4 hours) Pulse Ox 02/07/20 02:12 98 Diagnois, Code Status Date of Arrival on Unit 02/06/20 Admitted From Emergency Dept Diagnosis frequent falls, intractable pain Resucitation Status SCO Intake and Output 24 Hours 02/06/20 02/07/20 06:59 06:59 Intake Total 75 Output Total 1600 Balance -1525 Weight 97.4 kg Intake: Intake, Oral Amount 75 Output: Output, Rogel: 1600 Physical Assessment Anxiety Level Sleeping Mental Status Alert Patient Orientation Person,Place,Time Coma Scale Total 15 Breath Sounds [Anterior Clear Bilateral] Breath Sounds [Anterior/ Clear Posterior Bilateral Throughout ] Bowel Sounds [All Quadrants] Hypoactive Abdomen Description Soft,Non-Tender Date Rogel Cath Inserted 12/16/20 Urine Appearance Cloudy Urine Color Yellow Skin Color [place] Skin Temperature Warm Pain Scale (Last 24 Hours) Pain Intensity [Lower Medial 8 Back] Pain Intensity 0 Pain Intensity 8 Pain Intensity 10 Pain Intensity 8 Pain Intensity 8 Pain Intensity 8 Pain Intensity 8 Pain Intensity 8 Pain Intensity 7 Pain Intensity 7 Pain Intensity 8 Pain Intensity 8 Pain Intensity 8 Pain Intensity 8 PAST MEDICAL HISTORY Neurological History Peripheral Neuropathy,Stroke ENT History No Pertinent History Endocrine Medical History Diabetes Type II Respiratory History No Pertinent History Cardiac History High Cholesterol,Hypertension GI Medical History No Pertinent History History No Pertinent History Reproductive Disorders No Pertinent History Pyscho-Social History No Pertinent History Communicable Disease No Pertinent History Diet Order (Last 24 Hours) 02/06/20 Dinner Consistent Carbohydrate Diet 1999 Calorie Lab Results (Last 24 Hours) 02/06/20 02/06/20 02/06/20 Range/Units 22:00 21:40 17:53 WBC (4.0-10.5) K/mm3 RBC (4.1-5.4) M/mm3 Hgb (12.0-16.0) gm/dl Hct (35-47) % MCV (78-100) fl MCH (26-32) pg MCHC (32-36) g/dl RDW (11.5-14.0) % Plt Count (150-450) K/mm3 MPV (7.5-11.0) fl Gran % (36.0-66.0) % Eos # (Auto) (0-0.5) Absolute Lymphs (auto) (1.0-4.6) Absolute Monos (auto) (0.0-1.3) Lymphocytes % (24.0-44.0) % Monocytes % (0.0-12.0) % Eosinophils % (0.00-5.0) % Basophils % (0.0-0.4) % Absolute Granulocytes (1.4-6.9) Basophils # (0-0.4) Sodium 130 L (137-145) mmol/L Potassium 4.0 (3.5-5.1) mmol/L Chloride 93 L (98-107) mmol/L Carbon Dioxide 27 (22-30) mmol/L Anion Gap 14.6 (5-15) MEQ/L BUN 39 H (7-17) mg/dL Creatinine 1.30 H (0.52-1.04) mg/dL Estimated GFR 42.3 ML/MIN Glucose 124 H (74-106) mg/dL Calcium 9.6 (8.4-10.2) mg/dL Urinalys Dipstick Clnc MAIN LAB Urine Color YELLOW YELLOW (YELLOW) Urine Appearance CLOUDY CLOUDY (CLEAR) Urine pH 6.0 6.0 (5-6) Ur Specific [place] 1.010 1.010 (1.005-1.025) POC Urine Protein Conf NEGATIVE NEGATIVE (Negative) Urine Ketones NEGATIVE NEGATIVE (NEGATIVE) Urine Nitrite POSITIVE POSITIVE (NEGATIVE) Urine Bilirubin NEGATIVE NEGATIVE (NEGATIVE) Urine Urobilinogen 0.2 2 (0-1) mg/dL Urine Leukocytes LARGE MODERATE (NEGATIVE) Urine WBC (Auto) >100 >100 (0-5) /HPF Urine RBC (Auto) 0-2 0-2 (0-2) /HPF U Epithel Cells (Auto) NONE RARE (FEW) /HPF Urine Bacteria (Auto) MODERATE MODERATE (NEGATIVE) /HPF Urine RBC SMALL SMALL (0-5) Jamar/ul Urine Mucus (Auto) SLIGHT (NEGATIVE) /HPF Ur Culture Indicated? YES YES Urine Glucose NEGATIVE NEGATIVE (NEGATIVE) mg/dL 02/06/20 Range/Units 17:53 WBC 10.6 H (4.0-10.5) K/mm3 RBC 3.69 L (4.1-5.4) M/mm3 Hgb 11.6 L (12.0-16.0) gm/dl Hct 35.2 (35-47) % MCV 95.4 (78-100) fl MCH 31.4 (26-32) pg MCHC 33.0 (32-36) g/dl RDW 14.1 H (11.5-14.0) % Plt Count 232 (150-450) K/mm3 MPV 12.2 H (7.5-11.0) fl Gran % 65.0 (36.0-66.0) % Eos # (Auto) 0.30 (0-0.5) Absolute Lymphs (auto) 1.99 (1.0-4.6) Absolute Monos (auto) 1.40 H (0.0-1.3) Lymphocytes % 18.7 L (24.0-44.0) % Monocytes % 13.2 H (0.0-12.0) % Eosinophils % 2.8 (0.00-5.0) % Basophils % 0.3 (0.0-0.4) % Absolute Granulocytes 6.92 H (1.4-6.9) Basophils # 0.03 (0-0.4) Sodium (137-145) mmol/L Potassium (3.5-5.1) mmol/L Chloride (98-107) mmol/L Carbon Dioxide (22-30) mmol/L Anion Gap (5-15) MEQ/L BUN (7-17) mg/dL Creatinine (0.52-1.04) mg/dL Estimated GFR ML/MIN Glucose (74-106) mg/dL Calcium (8.4-10.2) mg/dL Urinalys Dipstick Clnc Urine Color (YELLOW) Urine Appearance (CLEAR) Urine pH (5-6) Ur Specific [place] (1.005-1.025) POC Urine Protein Conf (Negative) Urine Ketones (NEGATIVE) Urine Nitrite (NEGATIVE) Urine Bilirubin (NEGATIVE) Urine Urobilinogen (0-1) mg/dL Urine Leukocytes (NEGATIVE) Urine WBC (Auto) (0-5) /HPF Urine RBC (Auto) (0-2) /HPF U Epithel Cells (Auto) (FEW) /HPF Urine Bacteria (Auto) (NEGATIVE) /HPF Urine RBC (0-5) Jamar/ul Urine Mucus (Auto) (NEGATIVE) /HPF Ur Culture Indicated? Urine Glucose (NEGATIVE) mg/dL Microbiology Results (Last 24 Hours) 02/06/20 22:00 Urine Culture - Pending Urine, Indwelling Catheter 02/06/20 21:40 Urine Culture - Pending Urine, Void Orders (Last 24 Hours) Category Date Time Status Bedrest TOLERATED Activity 02/06/20 20:26 Active Cath [Catheter-Pine Rogel] STAT Care 02/06/20 21:15 Active Catheter Care Record Q6H Care 02/07/20 02:[address] in Observation ROUTINE Care 02/06/20 20:26 Active Weight,Daily 0600 Care 02/06/20 20:26 Active Technology Lead/Discharge Plan ROUTINE Cons 02/06/20 20:26 Active Consistent Carbohydrate Diet 2000 Calorie Diet 02/06/20 Dinner Active Nutritional Admission Screen ONCE Diet 02/06/20 23:31 Active HIP RIZWAN (4V) INCL PELV IF DONE Stat Exams 12/16/20 17:28 Taken LUMBAR LIMITED (2 OR 3 VIEWS) Stat Exams 02/06/20 17:28 Taken CBC Routine Lab 02/06/20 23:31 Ordered CULTURE,URINE Stat Lab 02/06/20 21:40 Received CULTURE,URINE Stat Lab 02/06/20 22:00 Received PREALBUMIN Routine Lab 02/06/20 23:31 Ordered Acetaminophen 325 mg [Tylenol 325 mg] Med 02/06/20 20:26 Ordered 650 mg PO Q4H PRN PRN Morphine Sulfate 30 mg/30 ml [Morphine DESK TOP PUBLISHER 1 MG/ML 30 Med 02/06/20 22:05 Ordered ML] 30 mg IV PRN PRN NaCl 0.9% 1000 ml [Sodium Chloride 0.9% 1000 ML] 1,000 Med 02/06/20 20:26 Ordered ml IV 50 mls/hr Ondansetron HCl 4 mg/2 ml [Zofran 4 MG/2 ML VIAL] Med 02/06/20 20:26 Ordered 4 mg IV Q6H PRN PRN Pharmacy Dose: Morphine DESK TOP PUBLISHER [Pharmacy Dosing Required: Med 02/06/20 23:00 Stat Morphine DESK TOP PUBLISHER] 1 each IV STAT STA PT Eval & Treat ( Order) ONCE PT 02/06/20 20:26 Active PT Screen per Nursing Assess ONCE PT 02/06/20 23:31 Active Active Visit Medications Generic Name Dose Route Start Last Admin Trade Name Freq PRN Reason Stop Dose Admin Acetaminophen 650 mg 02/06/20 20:26 Tylenol 325 Mg PO 03/07/20 20:25 Q4H PRN PRN PAIN, FEVER, HEADACHE Sodium Chloride 1,000 mls @ 50 mls/hr 02/06/20 20:26 02/07/20 03:31 Sodium Chloride 0.9% 1000 Ml IV 03/07/20 20:25 Not Given .Q20H KELLEN Morphine Sulfate 30 mg 02/06/20 22:05 02/06/20 22:12 Morphine Category Consultant 1 Mg/Ml 30 Ml IV 02/11/20 22:04 30 mg PRN PRN Administration PAIN Non-Formulary Medication 1 each 02/06/20 23:00 02/06/20 23:00 Pharmacy Dosing Required: Morphine Category Consultant IV 02/06/20 23:01 1 each STAT STA Administration Ondansetron HCl 4 mg 02/06/20 20:26 Zofran 4 Mg/2 Ml Vial IV 03/07/20 20:25 Q6H PRN PRN NAUSEA/VOMITING Home Medications Medication Instructions Recorded Confirmed Last Taken Type Acetaminophen 325 mg [Tylenol 650 mg PO BID 02/06/20 02/06/20 Unknown History 325 mg] Allopurinol 300 mg [Zyloprim 300 mg PO DAILY 02/06/20 02/06/20 Unknown History 300 mg] Amlodipine Besylate 5 mg 5 mg PO DAILY 02/06/20 02/06/20 02/06/20 History [Norvasc 5 mg] Atorvastatin Calcium 10 mg PO DAILY 02/06/20 02/06/20 02/06/20 History Carvedilol 6.25 mg [Coreg 6.25 6.25 mg PO BID 02/06/20 02/06/20 02/05/20 History MG] Gabapentin 300 mg PO TID 02/06/20 02/06/20 Unknown History Glipizide 10 mg PO DAILY 02/06/20 02/06/20 Unknown History Initialized on 02/07/20 04:05 - END OF NOTE Code(s): G45.9 - TRANSIENT CEREBRAL ISCHEMIC ATTACK, UNSPECIFIED (2) Metatarsal boss of left foot Current Visit: Yes Status: Acute Code(s): M25.775 - OSTEOPHYTE, LEFT FOOT (3) Frequent falls Current Visit: Yes Status: Acute Code(s): R29.6 - REPEATED FALLS (4) Intractable pain Current Visit: Yes Status: Acute Code(s): R52 - PAIN, UNSPECIFIED (5) Unable to ambulate Current Visit: Yes Status: Acute Code(s): R26.2 - DIFFICULTY IN WALKING, NOT ELSEWHERE CLASSIFIED
--- NOTE | 2020-02-07 08:43 | XRAY ---
Indication: Pain following fall 2-3 days ago. Comparison: None 3 view lumbar spine demonstrates 5 lumbar segments with mild osteopenia, moderate multilevel degenerative spondylosis, 7-8 mm L4 spondylolisthesis, mild dextroscoliosis centered at L1, and extensive scattered vascular calcifications. No other bony, articular, or soft tissue abnormalities. Pelvis/hips reported separately.
--- NOTE | 2020-02-07 08:44 | XRAY ---
Indication: Pain following fall 2-3 days ago. Comparison: March 14, 2018. AP pelvis and 2 view left and right hip demonstrates worsening marked degenerative changes left hip. Elsewhere stable osteopenia, moderate lower lumbar degenerative spondylosis, scattered vascular calcifications, and iatrogenic serpiginous metallic density overlying the pelvis. No other bony, articular, or soft tissue abnormalities.
[2020-02-07] MEDS: Colace 100 MG PO SCH (11:55)
[2020-02-07] MEDS: ROCEPHIN 1 Gm-D5w 50 ml Bag** 1 G/50 ML IVPB IV SCH (11:55)
--- NOTE | 2020-02-07 12:04 | XRAY ---
Indication: Pain following fall. Multiple contiguous axial images obtained through the left hip. Sagittal and coronal reformatted images obtained. Comparison: None. There is left hip radiograph one day earlier. Osseous structures demineralized consistent with patient's age. Left hip demonstrates advanced degenerative changes as evidenced by weightbearing joint space loss, opposing acetabulum/femur head sclerosis/spurring/subcortical cysts, femur head bony remodeling, and surrounding heterotopic ossifications. No acute fracture/dislocation. Right hip unremarkable. Incidental moderate degenerative changes of the visualized lower lumbar spine, 5mm anterolisthesis L4 on L5, mild scattered aortoiliac calcifications, sigmoid diverticulosis, Rogel balloon catheter in situ, and iatrogenic serpiginous metallic density in the vaginal canal. Impression: 1. Negative acute fracture/dislocation. 2. Osteopenia and advanced left hip degenerative arthropathy. 3. Incidental soft tissue and bony findings detailed above.
[2020-02-07] MEDS: Morphine PCA 1 MG/ML 30 ML IV PRN (16:03)
[2020-02-07] MEDS: Ecotrin 325 MG PO SCH (17:41)
[2020-02-07] MEDS: ZYLOPRIM 300 MG PO SCH (17:41)
[2020-02-07] MEDS: NORVASC 5 MG PO SCH (17:41)
[2020-02-07] MEDS: Zocor 10MG PO SCH (17:41)
[2020-02-07] MEDS: NEURONTIN 300 MG PO SCH (22:19)
[2020-02-07] MEDS: Coreg 6.25 MG PO SCH (22:19)
[2020-02-07] MEDS: TYLENOL 325 MG PO SCH (22:19)
[2020-02-08] MEDS: Sodium Chloride 0.9% 1000 ML 1,000 ML IV SCH ×2 (03:43→21:40)
[2020-02-08] MEDS: Glucotrol 5 MG PO SCH (08:44)
[2020-02-08] MEDS: Morphine PCA 1 MG/ML 30 ML IV PRN ×2 (09:30→09:39)
[2020-02-08] MEDS ORDERED: NON-FORMULARY ITEM (Glipizide [Glipizide] 10 MG) PO SCH (10:00)
[2020-02-08] MEDS ORDERED: NON-FORMULARY ITEM (Atorvastatin Calcium [Atorvastatin Calcium] 10 MG) PO SCH (10:00)
[2020-02-08] MEDS ORDERED: ASPIRIN 325 MG PO SCH (10:00)
[2020-02-08] MEDS: ZYLOPRIM 300 MG PO SCH (10:43)
[2020-02-08] MEDS: TYLENOL 325 MG PO SCH ×2 (10:43→21:36)
[2020-02-08] MEDS: NORVASC 5 MG PO SCH (10:43)
[2020-02-08] MEDS: Colace 100 MG PO SCH (10:43)
[2020-02-08] MEDS: ROCEPHIN 1 Gm-D5w 50 ml Bag** 1 G/50 ML IVPB IV SCH (10:43)
[2020-02-08] MEDS: Zocor 10MG PO SCH (10:43)
[2020-02-08] MEDS: Coreg 6.25 MG PO SCH ×2 (10:43→21:36)
[2020-02-08] MEDS: Ecotrin 325 MG PO SCH (10:43)
[2020-02-08] MEDS: NEURONTIN 300 MG PO SCH ×3 (10:43→21:36)
--- NOTE | 2020-02-08 10:44 | XRAY ---
Indication: FDC placement. Comparison: September 23, 2011. Portable chest again demonstrates normal heart and lungs with chronic right hemidiaphragm elevation. Bony thorax intact again with mild osteopenia and degenerative changes. Impression: Continued nonacute chest with chronic features.
[2020-02-09] MEDS: Morphine PCA 1 MG/ML 30 ML IV PRN ×2 (00:55→16:21)
[2020-02-09] MEDS: Glucotrol 5 MG PO SCH (08:20)
[2020-02-09] MEDS: ROCEPHIN 1 Gm-D5w 50 ml Bag** 1 G/50 ML IVPB IV SCH (09:54)
[2020-02-09] MEDS: TYLENOL 325 MG PO SCH ×2 (09:56→21:29)
[2020-02-09] MEDS: Coreg 6.25 MG PO SCH ×2 (09:56→21:30)
[2020-02-09] MEDS: NEURONTIN 300 MG PO SCH ×3 (09:56→21:29)
[2020-02-09] MEDS: Zocor 10MG PO SCH (09:56)
[2020-02-09] MEDS: ZYLOPRIM 300 MG PO SCH (09:57)
[2020-02-09] MEDS: NORVASC 5 MG PO SCH (09:57)
[2020-02-09] MEDS: Ecotrin 325 MG PO SCH (09:57)
[2020-02-09] MEDS: Colace 100 MG PO SCH (09:57)
--- NOTE | 2020-02-09 10:24 | PCM.NOTE ---
Date and Time: 02/09/20 1023 Subjective Assessment: pain is better controlled at the moment, agreeable to rehab stay which is being planned. no other new complaints Objective Exam General Appearance: no apparent distress Neurologic Exam: alert, oriented x 3 Respiratory Exam: normal breath sounds, lungs clear, No respiratory distress Cardiovascular Exam: regular rate/rhythm, normal heart sounds Gastrointestinal/Abdomen Exam: soft, No tenderness, No mass Extremity Exam: No pedal edema, No swelling OBJECTIVE DATA Vital Signs: Vital Signs - 24 hr Temp Pulse Resp BP Pulse Ox 02/09/20 08:00 99.1 F 68 20 147/67 97 02/09/20 05:39 93 L 02/09/20 05:30 93 L 02/09/20 04:55 93 L 02/09/20 04:03 93 L 02/09/20 04:00 98.6 F 73 125/54 93 L 02/09/20 01:39 98 02/09/20 01:30 98 02/09/20 00:55 98 02/09/20 00:03 98 02/09/20 00:00 98.2 F 76 18 127/57 98 02/08/20 21:39 94 L 02/08/20 21:30 94 L 02/08/20 20:03 94 L 02/08/20 20:00 98.5 F 82 20 133/62 94 L 02/08/20 15:43 98.0 F 98 H 20 168/89 94 L 02/08/20 12:00 99.0 F 98 H 20 168/74 94 L Pain Assessment - Last Documented Pain Intensity [Lower Medial 8 Back] Pain Intensity 3 Pain Scale Used [facility] Intake and Output: Intake & Output 02/06/20 02/07/20 02/08/20 02/09/20 11:59 11:59 11:59 11:59 Intake Total 968 4013 3343 Output Total 3000 3150 1100 Balance -2031 2243 Weight 97.4 kg 96 kg 95.6 kg Lab Results: Lab Results-Last 24 Hours 02/08/20 02/08/20 02/08/20 Range/Units 10:53 16:17 21:02 POC Glucometer 126 H 130 H 152 H (74 to 106) mg/dL 02/09/20 Range/Units 06:51 POC Glucometer 100 (74 to 106) mg/dL Radiology Exams: Radiology Procedures Category Date Time Status CHEST 1 VIEW (PORTABLE) Routine Exams 02/08/20 10:02 Completed PELVIS WITHOUT CONTRAST [CT] Urgent Exams 02/07/20 10:55 Completed Multi-Disciplinary Progress Notes: Multi-Disciplinary Progress Notes 02/08/20 17:32 Physical Therapy Note by Miladys Mak PT. SEEN BY P.TDudley BID THIS DATE. REPORTS PN IN L-SPINE, HIPS, AND L KNEE WORSE EARLY THIS AM BUT DECREASED AFTER BREAKFAST. RATES PN AT 0/10 UPON PT ARRIVAL T O ROOM. SUPINE TO SIT - MIN-MOD ASSIST X 2; SIT TO STAND MIN TO MOD ASSIST X 1 W/ WALKER; PT. TOOK 3-4 STEPS TO TRANSFER SLOWLY W/ PN W/ R LE ADVANCEMENT D/T L HIP DJD AND PN. PT. C/O INCREASED HIP PN W/ HIP FLEXION W/ SIT TO STAND AND STAND TO SIT. NOTABLE L HIP CREPITUS NOTED W/ WB. PT. PERFORMED ANKLE PUMPS, QUAD/GLUT SETS, R LE HEEL SLIDES AND SUPINE HIP ABD. PT. C/O INCREASED PN W/ ATTEMPTS FOR L LE HEEL SLIDES. DENIED NEED FOR CP AGAIN SHE DOES NOT FEEL IT HELPS. PM RX- PT. PERFORMED COMMODE TRANSFER W/ MOD ASSIST X1. PLAN IS TO D/C TO SNF TO CONT. REHAB WHEN INSURANCE APPROVAL IS OBTAINED. MILADYS MAK, PT Initialized on 02/08/20 17:32 - END OF NOTE 02/08/20 14:49 Case Management Note by Joyce Beck CHEST XRAY AND COVID FORM FAXED TO [facility] Initialized on 02/08/20 14:49 - END OF NOTE 02/08/20 14:43 Case Management Note by Joyce Beck [facility] CALLED BACK AND [facility]- THEY WILL START PRECERT. THEY ARE RE QUESTING A COVID SWAB AND A CHEST XRAY- ORDERS ENTERED PER Paulo WIN. PATIENT LIKELY HERE THRU WEEKEND WAITING ON PRECERT. PATIENT WAS UPDATED AND VERIFIED UNDERSTANDING Initialized on 02/08/20 14:43 - END OF NOTE Assessment/Plan (1) Frequent falls Current Visit: Yes Status: Acute Code(s): R29.6 - REPEATED FALLS (2) Intractable pain Current Visit: Yes Status: Acute Code(s): R52 - PAIN, UNSPECIFIED (3) Metatarsal boss of left foot Current Visit: Yes Status: Acute Code(s): M25.775 - OSTEOPHYTE, LEFT FOOT (4) Unable to ambulate Current Visit: Yes Status: Acute Code(s): R26.2 - DIFFICULTY IN WALKING, NOT ELSEWHERE CLASSIFIED
[2020-02-09] MEDS: Sodium Chloride 0.9% 1000 ML 1,000 ML IV SCH (19:23)
--- NOTE | 2020-02-10 06:58 | PCM.NOTE ---
Date and Time: 02/10/20 06 Subjective Assessment: patient lost IV access this morning, she became very anxious and actually hyperventilated, c/o numbness in her fingers. states her pain is slightly improved but got out of control without drywall applicator quickly. pain is diffuse in her low back, left hip, left leg, left foot and ankle etc Objective Exam General Appearance: anxiety Neurologic Exam: alert, cooperative Respiratory Exam: normal breath sounds, lungs clear, No respiratory distress Cardiovascular Exam: regular rate/rhythm, normal heart sounds Gastrointestinal/Abdomen Exam: soft, No tenderness, No mass Extremity Exam: normal inspection, normal range of motion OBJECTIVE DATA Vital Signs: Vital Signs - 24 hr Temp Pulse Resp BP Pulse Ox 02/10/20 04:21 98 02/10/20 04:00 98 02/10/20 03:58 98.8 F 62 20 150/64 98 02/10/20 00:21 97 02/10/20 00:00 99.4 F 61 18 137/61 97 02/09/20 20:21 97 02/09/20 20:00 99.7 F 71 18 137/71 97 02/09/20 16:21 94 L 02/09/20 16:00 99.9 F 78 20 128/64 94 L 02/09/20 15:59 94 L 02/09/20 12:00 100.7 F 71 18 131/63 94 L 02/09/20 08:00 99.1 F 68 20 147/67 97 Pain Assessment - Last Documented Pain Intensity [Lower Medial 8 Back] Pain Intensity 3 Pain Scale Used [facility] Intake and Output: Intake & Output 02/07/20 02/08/20 02/09/20 02/10/20 11:59 11:59 11:59 11:59 Intake Total 968 4013 3343 1802 Output Total 3000 3150 1100 2700 Balance -2032 863 2243 -898 Weight 97.4 kg 96 kg 95.6 kg Lab Results: Lab Results-Last 24 Hours 02/09/20 02/09/20 02/09/20 Range/Units 06:51 12:07 15:33 POC Glucometer 100 86 95 (74 to 106) mg/dL 02/09/20 Range/Units 21:57 POC Glucometer 131 H (74 to 106) mg/dL Radiology Exams: Radiology Procedures Category Date Time Status CHEST 1 VIEW (PORTABLE) Routine Exams 02/08/20 10:02 Completed Assessment/Plan (1) Anxiety Current Visit: Yes Status: Acute Assessment & Plan: her pain definitely seems exacerbated by anxiety, add low dose xanax since requiring narcotic in an attempt to improve anxiety and in turn pain control Code(s): F41.9 - ANXIETY DISORDER, UNSPECIFIED (2) UTI (urinary tract infection) Current Visit: Yes Status: Acute Assessment & Plan: continue rocephin Code(s): N39.0 - URINARY TRACT INFECTION, SITE NOT SPECIFIED (3) Frequent falls Current Visit: Yes Status: Acute Code(s): R29.6 - REPEATED FALLS (4) Intractable pain Current Visit: Yes Status: Acute Code(s): R52 - PAIN, UNSPECIFIED (5) Metatarsal boss of left foot Current Visit: Yes Status: Acute Code(s): M25.775 - OSTEOPHYTE, LEFT FOOT (6) Unable to ambulate Current Visit: Yes Status: Acute Code(s): R26.2 - DIFFICULTY IN WALKING, NOT ELSEWHERE CLASSIFIED
[2020-02-10 07:05] LABS: Absolute Neutrophil Ct (ANC) 3.51 (1.4-6.9); BASOPHIL % 0.2 % (0.0-0.4); Basophil (Absolute #) 0.01 (0-0.4); Eosinophil % 5.1 % (0.00-5.0); Hematocrit 31.9 % (35-47); Hemoglobin 9.9 gm/dl (12.0-16.0); Lymphocyte (Absolute #) 1.37 (1.0-4.6); Lymphocytes % 23.3 % (24.0-44.0); Mean Cell Volume 100.3 fl (78-100); Mean Corpuscular Hemoglobin 31.1 pg (26-32); Mean Platelet Volume 11.6 fl (7.5-11.0); Monocytes % 11.9 % (0.0-12.0); Neutrophil % 59.5 % (36.0-66.0); Platelet Count 190 K/mm3 (150-450); Red Blood Count 3.18 M/mm3 (4.1-5.4); Red Cell Distribution Width 14.2 % (11.5-14.0); White Blood Count 5.9 K/mm3 (4.0-10.5)
[2020-02-10 07:16] LABS: ALBUMIN 3.3 g/dL (3.5-5.0); ALKALINE PHOSPHATASE 86 U/L (38-126); ANION GAP 6.4 MEQ/L (5-15); BLOOD UREA NITROGEN 14 mg/dL (7-17); CHLORIDE 100 mmol/L (98-107); Calcium 9.2 mg/dL (8.4-10.2); Carbon Dioxide 30 mmol/L (22-30); Creatinine 1 0.81 mg/dL (0.52-1.04); EST GLOMERULAR FILTRATION RATE > 60.0 ML/MIN; Glucose 130 mg/dL (74-106); Potassium 4.3 mmol/L (3.5-5.1); SGOT/AST 21 U/L (14-36); SGPT/ALT 10 U/L (0-35); SODIUM 132 mmol/L (137-145); Total Protein 6.3 g/dL (6.3-8.2)
[2020-02-10] MEDS: Glucotrol 5 MG PO SCH (08:08)
[2020-02-10] MEDS: xanAX 0.25 MG PO PRN ×2 (08:08→17:33)
[2020-02-10] MEDS: ROCEPHIN 1 Gm-D5w 50 ml Bag** 1 G/50 ML IVPB IV SCH (09:45)
[2020-02-10] MEDS: Coreg 6.25 MG PO SCH ×2 (09:46→21:29)
[2020-02-10] MEDS: NORVASC 5 MG PO SCH (09:46)
[2020-02-10] MEDS: ZYLOPRIM 300 MG PO SCH (09:46)
[2020-02-10] MEDS: TYLENOL 325 MG PO SCH ×2 (09:46→21:29)
[2020-02-10] MEDS: Zocor 10MG PO SCH (09:46)
[2020-02-10] MEDS: NEURONTIN 300 MG PO SCH ×3 (09:46→21:29)
[2020-02-10] MEDS: Ecotrin 325 MG PO SCH (09:46)
[2020-02-10] MEDS: Colace 100 MG PO SCH (09:46)
[2020-02-10] MEDS: Morphine PCA 1 MG/ML 30 ML IV PRN (11:22)
[2020-02-10] MEDS: Sodium Chloride 0.9% 1000 ML 1,000 ML IV SCH (15:46)
[2020-02-11] MEDS: xanAX 0.25 MG PO PRN (04:20)
[2020-02-11] MEDS: Morphine PCA 1 MG/ML 30 ML IV PRN ×2 (07:13→15:23)
[2020-02-11] MEDS: Glucotrol 5 MG PO SCH (08:29)
[2020-02-11] MEDS: TYLENOL 325 MG PO SCH (09:42)
[2020-02-11] MEDS: ROCEPHIN 1 Gm-D5w 50 ml Bag** 1 G/50 ML IVPB IV SCH (09:42)
[2020-02-11] MEDS: Zocor 10MG PO SCH (09:43)
[2020-02-11] MEDS: NORVASC 5 MG PO SCH (09:43)
[2020-02-11] MEDS: Coreg 6.25 MG PO SCH (09:43)
[2020-02-11] MEDS: NEURONTIN 300 MG PO SCH ×2 (09:43→14:19)
[2020-02-11] MEDS: Ecotrin 325 MG PO SCH (09:43)
[2020-02-11] MEDS: Colace 100 MG PO SCH (09:43)
[2020-02-11] MEDS: ZYLOPRIM 300 MG PO SCH (09:43)
[2020-02-11 11:33] VITALS: BP 118/65; PULSE 60; O2SAT 98
--- NOTE | 2020-02-11 19:08 | PCM.DS ---
Discharge Summary Date of Admission: 02/09/20 12:00 Admitting Physician: RUSS SHARP Consults: Consults on Case 02/07/20 10:26 Consult Ortho ROUTINE 02/07/20 17:03 Consult Podiatry ROUTINE Primary Care Provider: RUSS SHARP Allergies Allergies diclofenac [From Voltaren] Allergy (Severe, Verified 02/07/20 03:47) Rash trolamine salicylate [From Aspercreme] Allergy (Severe, Verified 02/07/20 03:47) Rash levofloxacin [From Levaquin] Allergy (Mild, Verified 02/06/20 17:11) Itching patient also had red streak up arm FLU VACCINE Adverse Reaction (Severe, Uncoded 02/07/20 03:45) Nausea and Vomiting Hospital Summary - Hospital Course Hospital Course: Chief Complaint Diagnosis INTRACTABLE PAIN, UTI, FEVER Allergies Allergy/AdvReac Type Severity Reaction Status Date / Time diclofenac [From Voltaren] Allergy Severe Rash Verified 02/07/20 03:47 trolamine salicylate Allergy Severe Rash Verified 02/07/20 03:47 [From Aspercreme] levofloxacin [From Levaquin] Allergy Mild Itching Verified 02/06/20 17:11 FLU VACCINE AdvReac Severe Nausea and Uncoded 02/07/20 03:45 Vomiting Vital Signs (Last 24 hours) Temp Pulse Resp BP Pulse Ox 02/11/20 12:00 98 02/11/20 11:33 96.7 F 60 18 118/65 98 02/11/20 08:00 100 02/11/20 07:56 96.8 F 70 18 125/66 100 02/11/20 04:00 98.5 F 68 18 161/69 98 02/11/20 00:00 98.7 F 64 16 151/65 98 02/10/20 20:00 95 02/10/20 19:59 98.4 F 75 18 138/65 95 Home Medications Medication Instructions Recorded Confirmed Last Taken Type Acetaminophen 325 mg [Tylenol 650 mg PO BID 02/06/20 02/06/20 Unknown History 325 mg] Allopurinol 300 mg [Zyloprim 300 mg PO DAILY 02/06/20 02/06/20 Unknown History 300 mg] Amlodipine Besylate 5 mg 5 mg PO DAILY 02/06/20 02/06/20 02/06/20 History [Norvasc 5 mg] Atorvastatin Calcium 10 mg PO DAILY 02/06/20 02/06/20 02/06/20 History Carvedilol 6.25 mg [Coreg 6.25 6.25 mg PO BID 02/06/20 02/06/20 02/05/20 History MG] Gabapentin 300 mg PO TID 02/06/20 02/06/20 Unknown History Glipizide 10 mg PO DAILY 02/06/20 02/06/20 Unknown History Current Medications Discontinued Medications Generic Name Dose Route Start Last Admin Trade Name Freq PRN Reason Stop Dose Admin Acetaminophen 650 mg 02/06/20 20:26 Tylenol 325 Mg PO 03/07/20 20:25 Q4H PRN PRN PAIN, FEVER, HEADACHE Acetaminophen 650 mg 02/07/20 22:00 02/11/20 09:42 Tylenol 325 Mg PO 03/08/20 21:59 650 mg BID KELLEN Administration Allopurinol 300 mg 02/07/20 18:00 02/11/20 09:43 Zyloprim 300 Mg PO 03/08/20 17:59 300 mg DAILY KELLEN Administration Alprazolam 0.25 mg 02/10/20 06:30 02/11/20 04:20 Xanax 0.25 Mg PO 03/11/20 06:29 0.25 mg Q4H PRN PRN Administration Amlodipine Besylate 5 mg 02/07/20 18:00 02/11/20 09:43 Norvasc 5 Mg PO 03/08/20 17:59 5 mg DAILY KELLEN Administration Aspirin 325 mg 02/07/20 18:00 02/11/20 09:43 Ecotrin 325 Mg PO 03/08/20 17:59 325 mg DAILY KELLEN Administration Carvedilol 6.25 mg 02/07/20 22:00 02/11/20 09:43 Coreg 6.25 Mg PO 03/08/20 21:59 6.25 mg BID KELLEN Administration Docusate Sodium 100 mg 02/07/20 10:00 02/11/20 09:43 Colace 100 Mg PO 03/08/20 09:59 100 mg DAILY KELLEN Administration Gabapentin 300 mg 02/07/20 22:00 02/11/20 14:19 Neurontin 300 Mg PO 03/08/20 21:59 300 mg TID KELLEN Administration Glipizide 10 mg 02/08/20 08:00 02/11/20 08:29 Glucotrol 5 Mg PO 03/09/20 07:59 10 mg BREAKFAST KELLEN Administration Sodium Chloride 1,000 mls @ 100 mls/hr 02/06/20 17:30 02/06/20 17:41 Sodium Chloride 0.45% 1000 Ml IV 03/07/20 17:29 Not Given .Q10H KELLEN Sodium Chloride Confirm 02/06/20 17:33 Sodium Chloride 0.9% 1000 Ml Administered 02/06/20 17:34 Dose 1,000 mls @ ud .ROUTE .STK-MED ONE Sodium Chloride 1,000 mls @ 100 mls/hr 02/06/20 17:45 02/06/20 17:44 Sodium Chloride 0.9% 1000 Ml IV 03/07/20 17:44 100 mls/hr .Q10H KELLEN Administration Sodium Chloride 1,000 mls @ 50 mls/hr 02/06/20 20:26 02/10/20 15:46 Sodium Chloride 0.9% 1000 Ml IV 03/07/20 20:25 50 mls/hr .Q20H KELLEN Administration Ceftriaxone Sodium/Dextrose 1 g in 50 mls @ 100 mls/hr 02/07/20 10:00 0 09:42 Rocephin 1 Gm-D5w 50 Ml Bag IV 03/08/20 09:59 100 mls/hr Q24H10 KELLEN Administration Lorazepam 0.5 mg 02/06/20 19:25 02/06/20 19:58 Ativan 2 Mg/1 Ml Vial IV 02/06/20 19:26 0.5 mg STAT ONE Administration Lorazepam Confirm 02/06/20 19:49 Ativan 2 Mg/1 Ml Vial Administered 02/06/20 19:50 Dose 2 mg .ROUTE .STK-MED ONE Morphine Sulfate 2 mg 02/06/20 17:29 02/06/20 17:34 Morphine Sulfate 2 Mg Inj IV 02/06/20 17:30 2 mg STAT ONE Administration Morphine Sulfate Confirm 02/06/20 17:33 Morphine Sulfate 2 Mg Inj Administered 02/06/20 17:34 Dose 2 mg .ROUTE .STK-MED ONE Morphine Sulfate 2 mg 02/06/20 19:25 02/06/20 19:59 Morphine Sulfate 2 Mg Inj IV 02/06/20 19:26 2 mg STAT ONE Administration Morphine Sulfate Confirm 02/06/20 19:49 Morphine Sulfate 2 Mg Inj Administered 02/06/20 19:50 Dose 2 mg .ROUTE .STK-MED ONE Morphine Sulfate 2 mg 02/06/20 20:26 Morphine Sulfate 4 Mg Inj IV 02/11/20 20:25 Q4H PRN PRN PAIN Morphine Sulfate Confirm 02/06/20 21:56 Morphine Mass Spectrometry Specialist 1 Mg/Ml 30 Ml Administered 02/06/20 21:57 Dose 30 mg IV .STK-MED ONE Morphine Sulfate 30 mg 02/06/20 22:05 02/11/20 15:23 Morphine Mass Spectrometry Specialist 1 Mg/Ml 30 Ml IV 02/11/20 22:04 30 mg PRN PRN Administration PAIN Non-Formulary Medication 1 each 02/06/20 22:01 02/06/20 22:00 Pharmacy Dosing Required: Morphine Mass Spectrometry Specialist IV 02/06/20 22:02 1 each STAT STA Administration Non-Formulary Medication 1 each 02/06/20 23:00 02/06/20 23:00 Pharmacy Dosing Required: Morphine Mass Spectrometry Specialist IV 02/06/20 23:01 1 each STAT STA Administration Ondansetron HCl 4 mg 02/06/20 17:29 02/06/20 17:34 Zofran 4 Mg/2 Ml Vial IV 02/06/20 17:30 4 mg STAT ONE Administration Ondansetron HCl Confirm 02/06/20 17:33 Zofran 4 Mg/2 Ml Vial Administered 02/06/20 17:34 Dose 4 mg .ROUTE .STK-MED ONE Ondansetron HCl 4 mg 02/06/20 20:26 Zofran 4 Mg/2 Ml Vial IV 03/07/20 20:25 Q6H PRN PRN NAUSEA/VOMITING Simvastatin 10 mg 02/07/20 18:00 02/11/20 09:43 Zocor 10mg PO 03/08/20 17:59 10 mg DAILY KELLEN Administration Intake & Output (Last 24 hours) 02/09/20 02/10/20 02/11/20 02/12/20 11:59 11:59 11:59 11:59 Intake Total 3343 2642 1432 480 Output Total 1100 3700 3650 450 Balance 6940 -2956 -2281 30 Weight 95.6 kg 100.3 kg Laboratory Results (Last 24 hours) 02/11/20 02/11/20 02/10/20 11:23 07:33 21:36 POC Glucometer 136 H 123 H 157 H Orders (Last 24 hours) Category Date Time Status Discharge Routine Discharge 02/11/20 Ordered Discharge/Telephone Order Routine Discharge 02/11/20 Active POCT GLUCOSE Stat Lab 02/10/20 21:36 Completed POCT GLUCOSE Stat Lab 02/11/20 07:33 Completed POCT GLUCOSE Stat Lab 02/11/20 11:23 Completed Patient Care Notes (Last 24 hours) 02/11/20 14:54 Nursing Note by James Hutchins REPORT CALLED TO [facility] AT [facility] Initialized on 02/11/20 14:54 - END OF NOTE 02/11/20 13:03 Physical Therapy Note by Miladys Genao PT. SEEN THIS A.M. FOR P.T. REPORTS SEVERE INCREASE IN PN THROUGH THE NIGHT AND WAS IN DAM[place]-CHAIR UPON P.T. ARRIVAL TO ROOM. STATES PN ~ 4/10 NOW. PT. REPORTS INCREASED DIFFICULTY BEARING ANY WEIGHT ON L LE OF LATE. TO HAVE ORTHO CONSULT W/ DR. DHALIWAL ON 02/29/20. PT. AGREEABLE TO PERFORM UE STRENGTHENING - DOWEL JACOB W/ 2# WEIGHT - CHEST PRESS, SHOULDER FLEXION, ROWS, AND THERABAND SCAPULAR RETRACTION AND PULL-DOWNS. PT. PERFORMED SOME SEATED R LE SAQS AND HIP FLEXION WELL ANKLE AROM, DID C/O INCREASED L HIP PN W/ R LE EX'S D/T WEIGHT SHIFT. PT. STILL NOTED SIGNIFICANT AND PNFUL CREPITUS IN L HIP W/ MOVEMENT. PLAN IS TO D/C TO SNF THIS DATE. MILADYS GENAO PT Initialized on 02/11/20 13:03 - END OF NOTE 02/11/20 12:16 Case Management Note by Sonal Kenney [facility] CALLED TO REPORT THAT THEY WILL BE READY FOR PT THIS AFTERNOON AT REHAB. SPOKE WITH DR. SHARP AND NOTIFIED THAT [facility] IS READY FOR PT EARLY THIS AFTERNOON, IF HE IS READY FOR DISCHARGE. DR. SHARP REPORTS THAT HE WILL BE HERE TO ROUND THIS AFTERNOON. Initialized on 02/11/20 12:16 - END OF NOTE 02/11/20 11:20 Case Management Note by Joyce Beck UPDATED CLINICALS FAXED TO [facility] PER THEIR REQUEST Initialized on 02/11/20 11:20 - END OF NOTE - Vitals & Intake/Output Vital Signs: Vital Signs Temperature 96.7 F 02/11/20 11:33 Pulse Rate 60 02/11/20 11:33 Respiratory Rate 18 02/11/20 11:33 Blood Pressure 118/65 02/11/20 11:33 O2 Sat by Pulse Oximetry 98 02/11/20 12:00 Intake & Output: Intake & Output 02/09/20 02/10/20 02/11/20 02/12/20 11:59 11:59 11:59 11:59 Intake Total 3343 2642 1432 480 Output Total 1100 3700 3650 450 Balance 8588 -3716 -2358 30 Weight 95.6 kg 100.3 kg - Lab Result Diagrams: 02/10/20 05:35 02/10/20 05:35 Lab Results-Last 24 Hrs: Lab Results-Last 24 Hours 02/10/20 02/11/20 02/11/20 Range/Units 21:36 07:33 11:23 POC Glucometer 157 H 123 H 136 H (74 to 106) mg/dL Micro Results-Entire Visit: Microbiology 02/06/20 22:00 Urine Culture - Final Urine, Indwelling Catheter Escherichia Coli 02/06/20 21:40 Urine Culture - Final Urine, Void Escherichia Coli Accuchecks Date 02/11/20 Date 02/11/20 Date 02/10/20 Time 11:30 Time 07:30 - Procedures and Test Procedures and Tests throughout Hospitalization: Therapy Orders & Screens 02/06/20 20:26 PT Eval & Treat ( Order) ONCE Reason for Eval:: Patient unable to ambulate Diagnosis: Falls 02/06/20 23:31 PT Screen per Nursing Assess ONCE Comment: Protocol Order Physician Instructions: Greater than 3 points order PT Admission Screenin Reason For Exam: Triggered on Admission Diagnosis: frequent falls, intractable pain Open Wound/Cellutlitis/Pressure Ulcers: No Acute Fx/ORIF/Change in wt bearing status: No Severe MUSCULOSKELETAL pain: Yes ADL Dysfunction: Yes Acute CVA w/Hemiparesis/Hemiplegia: No Decreased Functional Mobility/Strength: No Sprain/Strain: No Acute Post-op Mobility Dysfunction: No Total Points: 8 Discharge Exam General Appearance: no apparent distress, alert Neurologic Exam: alert, oriented x 3, cooperative, normal mood/affect, nml cerebellar function, sensation nml, No motor deficits Eye Exam: PERRL, EOMI, eyes nml inspection Ears, Nose, Throat Exam: normal ENT inspection, pharynx normal, moist mucous membranes Neck Exam: normal inspection, non-tender, supple, full range of motion Respiratory Exam: normal breath sounds, lungs clear, No respiratory distress Cardiovascular Exam: regular rate/rhythm, normal heart sounds Gastrointestinal/Abdomen Exam: soft, No tenderness, No mass Pelvic Exam: deferred Rectal Exam: deferred Back Exam: normal inspection, normal range of motion, No CVA tenderness, No vertebral tenderness Extremity Exam: normal inspection, normal range of motion Skin Exam: normal color, warm, dry Final Diagnosis/Problem List - Final Discharge Diagnosis/Problem (1) Transient ischemic attack Status: Resolved Priority: High Code(s): G45.9 - TRANSIENT CEREBRAL ISCHEMIC ATTACK, UNSPECIFIED (2) Metatarsal boss of left foot Status: Resolved Code(s): M25.775 - OSTEOPHYTE, LEFT FOOT (3) Frequent falls Status: Resolved Code(s): R29.6 - REPEATED FALLS (4) Intractable pain Status: Resolved Code(s): R52 - PAIN, UNSPECIFIED (5) Unable to ambulate Status: Acute Code(s): R26.2 - DIFFICULTY IN WALKING, NOT ELSEWHERE CLASSIFIED - Discharge Discharge Date: 02/11/20 Disposition: DC TO ANY "OTHER" [facility] Condition: Stable Prescriptions: Continue Aspirin [Anamaria Aspirin] 325 mg PO DAILY #0 tablet Allopurinol 300 mg [Zyloprim 300 mg] 300 mg PO DAILY Glipizide 10 mg PO DAILY Gabapentin 300 mg PO TID Atorvastatin Calcium 10 mg PO DAILY Amlodipine Besylate 5 mg [Norvasc 5 mg] 5 mg PO DAILY Acetaminophen 325 mg [Tylenol 325 mg] 650 mg PO BID Carvedilol 6.25 mg [Coreg 6.25 MG] 6.25 mg PO BID Additional Instructions: Appt with is set for February 29, 2020 @ 1:00p.m. arrive 15 minutes early to register. [facility] ORDERS PT/OT EVAL AND TREAT UP W ASSIST CONSISTENT CARB DIET ROUTINE HDEZ CATHETER CARE SEE MED LIST Follow up with: DOMINIQUE DHALIWAL Jr., MD [NON-STAFF PHY W/O PRIVILEGES] - 02/29/20 1:00 pm RUSS SHARP MD [Primary Care Provider] - Forms: Ambulance Transport Record, Transfer Record [facility]
== END 2020-02-11 14:55 | DRG 69 ==
LOC: ED 16:56 → MED SURG 20:21 → OBSVTOIN 02-09 12:00
PROVIDERS: ADMIT General Practice; ATTEND General Practice
DX: G45.9 Transient cerebral ischemic attack, unspecified (principal); N39.0 Urinary tract infection, site not specified; M54.5 Low back pain; M25.552 Pain in left hip; M25.551 Pain in right hip; Z79.899 Other long term (current) drug therapy; E11.9 Type 2 diabetes mellitus without complications; I10 Essential (primary) hypertension; R29.6 Repeated falls; M25.775 Osteophyte, left foot; E78.00 Pure hypercholesterolemia, unspecified; B96.20 Unspecified Escherichia coli [E. coli] as the cause of diseases classified elsewhere; F41.9 Anxiety disorder, unspecified; R06.4 Hyperventilation
CPT/HCPCS: 36415; 71045; 72100; 72192; 73522; 80048; 80053; 81015; 82947; 83036; 84134; 85025; 85027; 87077; 87086; 87186; 96374; 96375; 96376; 97110; 97161; 97530; 99241; 99285; G0378; U0003; J0696; J2060; J2270; J2405; A9270-GY